=== PATIENT | male | born 1960 | race Caucasian/White ===

== ENCOUNTER 2019-11-08 00:16 | Emergency (ER) | payer BC, SELFPAY ==
--- NOTE | 2019-11-08 00:23 | ED_ITS ---
Entered by Cheri Dietrich, acting as scribe for William James MD HPI - Extremity Problem General: Chief complaint: Extremity Injury, Lower Stated complaint: SWOLLEN LEFT LEG Time Seen by Provider: 11/08/19 00:20 Source: patient and family Mode of arrival: ambulatory Limitations: no limitations History of Present Illness: HPI Narrative: 59 y/o male presents to the ED with complaint of left lower extremity pain. Pt states he has hx of clots. He has had some discomfort for several days but tonight, after a long car ride from , it became much worse. Pt states the swelling and tenderness has increased. He is currently on Xerelto. Complaint: extremity pain and extremity swelling Onset (ago): day(s) (2) Pain Consistency: constant Location: left and lower extremity Quality: aching Relieving factors: nothing Associated symptoms: Deny chest pain, fever(s) or rash Review of Systems Const: Denies: fever or chills ENMT: Denies: throat pain or mouth pain Card: Denies: chest pain Resp: Denies: shortness of breath GI: Denies: abdominal pain, nausea, vomiting or diarrhea Musc: Denies: back pain or joint pain Skin/Breast: Denies: rash Neuro: Denies: headache or behavioral changes Psych: Denies: depression Endo: Denies: excessive urination Christian/Lymph: Denies: easy bruising All/Imm: Denies: hives PFSH ED PFSH: Statuses (acute, chronic, etc) shown below reflect problem list status as previously entered and may not be historically accurate Social History Smoking and tobacco status: never smoked Physical Exam Const: COMMON NORMALS: no apparent distress, oriented x3 and healthy appearing HENMT: COMMON NORMALS: normocephalic and external nose normal HEAD & SCALP: normocephalic NOSE: external nose normal Eye: COMMON NORMALS: PERRL PUPIL: Yes PERRL Neck/C-Spine: COMMON NORMALS: full ROM and no lymphadenopathy Chest: COMMONS NORMALS: inspection of chest normal Resp: COMMON NORMALS: normal respiratory effort, no use of accessory muscles and clear to auscultation bilaterally AUSCULTATION: clear to auscultation bilaterally Cardio: COMMON NORMALS: regular rate and regular rhythm RATE: regular rate RHYTHM: regular rhythm GI: COMMON NORMALS: normal to inspection, nondistended, normoactive bowel sounds, soft to palpation, non-tender and no masses PALPATION: Yes soft Back/Pelvis: THORACIC SPINE/UPPER BACK: Yes normal to inspection Extremity: GENERAL: Yes calf tenderness, Yes edema (moderate) and Yes weight- bearing difficulty LEFT LOWER EXTREMITY: Yes lower leg Neuro: COMMON NORMALS: oriented x3 Psych: COMMON NORMALS: mental status grossly normal and cooperative Skin: COMMON NORMALS: no rashes or lesions noted GENERAL SKIN EXAM: no rashes or lesions noted Course Vital Signs: Vital signs: Vital Signs Temperature 98.6 F 11/08/19 00:25 Pulse Rate 64 11/08/19 02:03 Respiratory Rate 16 11/08/19 02:03 Blood Pressure 122/84 11/08/19 02:03 Pulse Oximetry 95 11/08/19 02:03 MDM - Extremity (Nontraumatic) MDM Narrative: Medical decision making narrative: Patient presents here with a DVT. He is currently on Xarelto and is to continue. Patient is not from here and has a to go to tomorrow. He lives in [facility] has an oncologist and PCP there. I informed patient he is to call his physician in the morning and to continue his Xarelto. If he has any chest pain or shortness of breath he is to return immediately. He understands and agrees to plan. Lab Data: Labs: Lab Results 11/08/19 Range/Units 01:40 PT 13.20 (10.5-13.3) SECO NDS INR 0.98 (0.8-1.2) Imaging Data^: US Vascular: My impression: us showed old clot along with new dvt in popliteal Discharge Plan Discharge Patient Disposition: Home, Self-Care Clinical Impression: Deep vein thrombosis of lower extremity Qualifiers: Affected thrombotic vein of extremity: popliteal Chronicity: acute Laterality: left Qualified Code(s): I82.432 - Acute embolism and thrombosis of left popliteal vein Condition: Stable Prescriptions: No Action Keppra 500 mg Tablet 1,000 mg PO BID RF: 0 Cartia XT 300 mg Capsule,Extended Release 24hr 300 mg PO DAILY RF: 0 lisinopril 10 mg Tablet 10 mg PO DAILY RF: 0 atenolol 50 mg Tablet 50 mg PO DAILY RF: 0 Xarelto 20 mg Tablet 20 mg PO DAILY RF: 0 Discharge Orders: Discharge Order (Routine); Ordered 11/08/19 Ordered By: William James Discharge Diet: Advance as tolerated Discharge Activity: Resume usual activity Patient Instructions: Deep Venous Thrombosis (ED) Discharge Date/Time: 11/08/19 02:04 Coding Level of Care Code ED Diversified Crops Supervisor for Chg Fwd Exam Problem Focused The documentation recorded by the Karlo swanson Ashley, accurately reflects the service I personally performed and the decisions made by Erika eason Korby, MD Nov 08, 2019 00:16
[2019-11-08 00:25] VITALS: BP 155/86; PULSE 73; RESP 18; TEMP 37; O2SAT 95; BMI 36.1
--- NOTE | 2019-11-08 00:27 | USCV_ITS ---
KHOA TORREZ Age: 59 Gender: M : 1960 Exam Date: 11/08/2019 01:06 Ordering Phys: William James MD Technologist: Tho Barton Exam Location: [facility]_ Indication: DVT HISTORY: HX OF DVT PROCEDURES: Venous duplex imaging was performed in only the left lower extremity. The following venous structures were evaluated: common femoral vein, profunda vein, proximal portion of the greater saphenous vein, femoral vein, and the popliteal vein. In addition, the posterior tibial and peroneal trunk were evaluated. Serial compression, augmentation maneuvers, and spectral Doppler flow evaluation were performed. FINDINGS: DVT noted in left popliteal, peroneal, and posterior tibial veins. All other veins imaged appear free of thrombus at this time. CONCLUSIONS Deep venous thrombosis in the left popliteal, peroneal and posterior tibial veins. Dr. Cecilia Nguyễn MD (Electronically Signed) Final Date: 08 November 2019 08:50 S
--- NOTE | 2019-11-08 00:27 | PC.NURSE ---
Patient reports that he has had some left lower leg swelling. Patient states that they drove here from [place] when he noticed when they got into town that his left leg was swollen more with pain.
[2019-11-08 01:59] LABS: INR 0.98 (0.8-1.2)
[2019-11-08 02:03] VITALS: BP 122/84; PULSE 64; RESP 16; O2SAT 95
== END 2019-11-08 02:04 | disposition home or self-care (01) ==
PROVIDERS: Emergency Provider Emergency Medicine
DX: I82.432 Acute embolism and thrombosis of left popliteal vein (principal)
CPT/HCPCS: 85610; 93971; 99281; 99283